=== PATIENT | female | born 1990 | race Caucasian/White ===

== ENCOUNTER 2023-10-11 09:45 | Outpatient (CLI) | payer OTHER ==
--- NOTE | 2023-10-11 11:57 | XRAY Report ---
PROCEDURE: Chest 2V INDICATIONS: COUGH TECHNIQUE: 2 views of the chest were acquired. COMPARISON: None. FINDINGS: Surgical changes and devices: None. Lungs and pleura: No pleural effusions or pneumothorax. Lungs are clear. Mediastinum: Mediastinal contours appear normal. Heart size is normal. Bones and chest wall: No suspicious bony lesions. Overlying soft tissues appear unremarkable. IMPRESSION: No acute cardiopulmonary process. Reviewed by: Erci Mauro MD on 10/11/2023 11:55 AM [facility] Approved by: Eric Mauro MD on 10/11/2023 11:55 AM [facility] Station ID: [id number]
== END 2023-10-11 10:00 | disposition home or self-care (01) ==
LOC: DI.N 09:45
PROVIDERS: ATTEND Family Medicine
DX: R05.9 Cough, unspecified (principal)

== ENCOUNTER 2024-03-20 18:13 | Outpatient (CLI) | payer OTHER ==
--- NOTE | 2024-03-21 12:34 | Ultrasound Report ---
PROCEDURE: Pelvic w/Transvaginal INDICATIONS: RUQ PAIN TECHNIQUE: Real-time scanning was performed of the pelvic organs, with image documentation. Additional endovagi nal scanning was necessary due to incomplete visualization of the adnexal and endometrial structures by transabdominal scanning. COMPARISON: None. FINDINGS: Uterus: Uterus is anteverted and normal in size at 7 x 4.2 x 3.6 cm. The myometrium is homogeneous. The endometrium measures 11 mm in combined thickness. No fibroids seen. Ovaries: The right ovary measures 4.1 x 3.8 x 3 cm, with a calculated ovarian volume of 24 cc. The left ovary measures 3.8 x 3 x 2.8 cm, with a calculated ovarian volume of 16 cc. The ovaries have a normal sonographic appearance. Less than 12 follicles can be seen in each ovary. No adnexal masses are seen. No cystic lesions measuring greater than 3 cm. Small ovarian follicles. Other: No pathologic free abdominal or pelvic fluid. IMPRESSION: 1. No significant ovarian cysts. A few small simple dominant follicles. No free fluid. 2. Endometrium measures 11 mm. Reviewed by: Jim Frazier MD on 03/21/2024 12:32 PM PDT Approved by: Jim Frazier MD on 03/21/2024 12:32 PM PDT Station ID: [id number]
== END 2024-03-20 18:14 | disposition home or self-care (01) ==
LOC: DI 18:13
PROVIDERS: ATTEND Obstetrics & Gynecology
DX: N92.0 Excessive and frequent menstruation with regular cycle (principal); R10.2 Pelvic and perineal pain

== ENCOUNTER 2024-04-20 06:30 | Day surgery (SDC) | payer OTHER ==
[~2024-04-20 06:30] MED LIST: ATROPINE ABBOJECT 1 MG/10 ML SYRINGE IVP PRN; DEXAMETHASONE 4 MG/ML VIAL ONE; LACTATED RINGERS 1,000 ML IV SCH; MIDAZOLAM 2 MG/2 ML VIAL ONE; MORPHINE 2 MG/ML CARPUJECT IVP PRN; NALOXONE 0.4 MG/ML VIAL IVP PRN; ONDANSETRON 4 MG/2 ML VIAL ONE; PROPOFOL 200 MG/20 ML VIAL IVP ONE; ROCURONIUM 50 MG/5 ML VIAL ONE; ePHEDrine 50 MG/ML VIAL IVP PRN; fentaNYL 100 MCG/2 ML VIAL ONE
[2024-04-20] MEDS: LACTATED RINGERS 1,000 ML IV ONE ×3 (06:35→09:13)
[2024-04-20] MEDS: GABAPENTIN 400 MG CAPSULE ONE (06:40)
[2024-04-20] MEDS: ACETAMINOPHEN 325 MG TABLET PO ONE (06:40)
[2024-04-20] MEDS ORDERED: BUPIVACAINE 0.25% PF 30 ML VIAL ONE (06:53)
[2024-04-20] MEDS ORDERED: LEVONORGESTREL 20 MCG/24H IUD IY ONE (07:05)
[2024-04-20 07:29] LABS: BASOPHILS # (AUTO) 0.1 10^3/uL (0.0-0.1); BASOPHILS % (AUTO) 1.3 %; EOSINOPHILS # (AUTO) 0.1 10^3/uL (0.0-0.7); EOSINOPHILS % (AUTO) 1.9 %; HCT - HEMATOCRIT 37.7 % (37.0-47.0); HGB - HEMOGLOBIN 12.5 g/dL (12.0-16.0); LYMPHOCYTES % (AUTO) 42.4 %; MEAN CORPUSCULAR HEMOGLOBIN 28.3 pg (27.0-31.0); MEAN CORPUSCULAR HGB CONC 33.2 g/dL (32.0-36.0); MEAN CORPUSCULAR VOLUME 85.5 fL (81.0-99.0); MEAN PLATELET VOLUME 10.3 fL (7.9-10.8); MONOCYTES # (AUTO) 0.3 10^3/uL (0.0-1.0); MONOCYTES % (AUTO) 7.3 %; NEUTROPHILS # (AUTO) 2.2 10^3/uL (1.5-6.6); NEUTROPHILS % (AUTO) 46.9 %; PLT - PLATELET COUNT 320 10^3/uL (130-450); RED BLOOD COUNT 4.41 10^6/uL (4.20-5.40); RED CELL DISTRIBUTION WIDTH 13.7 % (12.0-15.0); WHITE BLOOD COUNT 4.7 x10^3/uL (4.8-10.8)
[2024-04-20 07:31] LABS: HCG UR QUAL NEGATIVE
--- NOTE | 2024-04-20 07:37 | ANESTHESIA ---
Pre-Anesthesia VS, & Labs - Diagnosis Chronic pelvic pain - Procedure laparoscopy with fulguration of lesions Vital Signs: Temp Pulse Resp BP Pulse Ox O2 Flow Rate 36.9 C 68 16 122/79 98 04/20/24 06:52 04/20/24 06:52 04/20/24 06:52 04/20/24 06:52 04/20/24 06:52 Height: 5 ft 7 in Weight (kg): 97 kg Body Mass Index: 33.5 BMI Classification: Obese - Is Patient ?: No - Lab Results Current Lab Results: Laboratory Tests 04/20/24 07:10: WBC 4.7 L, RBC 4.41, Hgb 12.5, Hct 37.7, MCV 85.5, MCH 28.3, M CHC 33.2, RDW 13.7, Plt Count 320, MPV 10.3, Neut # (Auto) 2.2, Lymph # (Auto) 2.0, [place] # (Auto) 0.3, Eos # (Auto) 0.1, Baso # (Auto) 0.1, Absolute Nucleated RBC 0.00, Nucleated RBC % 0.0 Fish Bones: 04/20/24 07:10 Home Medications and Allergies Home Medications: Ambulatory Orders Cholecalciferol (Vitamin D3) [Vitamin D3] 5,000 unit PO DAILY 04/13/24 Cyclobenzaprine [Flexeril] 5 mg PO TID PRN 04/13/24 Escitalopram Oxalate [Lexapro] 20 mg PO DAILY 04/13/24 Gabapentin [Neurontin] 300 mg PO BID 04/13/24 SUMAtriptan succinate 50 mg PO ONCE PRN 04/13/24 Zolpidem Tartrate [Ambien] 10 mg PO QPM 04/13/24 hydrOXYzine HCL [Hydroxyzine HCl] 25 mg PO PRN PRN 04/13/24 Active Medications Atropine Sulfate (Atropine Abboject 1 Mg/10 Ml Syringe) 0.5 mg IVP Q5M PRN PRN Reason: Bradycardia Stop: 04/21/24 05:54 Ephedrine Sulfate (Ephedrine 50 Mg/Ml Vial) 10 mg IVP Q5M PRN PRN Reason: HYPOTENSION Stop: 04/21/24 05:54 Fentanyl (Fentanyl 100 Mcg/2 Ml Vial) 25 - 50 mcg IVP Q5M PRN PRN Reason: BREAKTHROUGH PAIN (2nd Choice) Stop: 04/21/24 05:54 Hydromorphone HCl (Hydromorphone 0.5 Mg/0.5 Ml Syringe) 0.2 - 0.6 mg IVP Q5M PRN PRN Reason: PAIN (First Choice) Stop: 04/21/24 05:54 Lactated Ringer's (Lr) 1,000 mls @ 100 mls/hr IV .Q10H NATALIIA Stop: 04/20/24 15:59 Morphine Sulfate (Morphine 2 Mg/Ml Carpuject) 2 - 4 mg IVP Q5M PRN PRN Reason: PAIN (3rd Choice) Stop: 04/21/24 05:54 Naloxone HCl (Naloxone 0.4 Mg/Ml Vial) 0.1 mg IVP Q2M PRN PRN Reason: RESP RATE <8 Stop: 04/21/24 05:54 Cholecalciferol (Vitamin D3) [Vitamin D3] 5,000 unit PO DAILY 04/13/24 Cyclobenzaprine [Flexeril] 5 mg PO TID PRN 04/13/24 Escitalopram Oxalate [Lexapro] 20 mg PO DAILY 04/13/24 Gabapentin [Neurontin] 300 mg PO BID 04/13/24 SUMAtriptan succinate 50 mg PO ONCE PRN 04/13/24 Zolpidem Tartrate [Ambien] 10 mg PO QPM 04/13/24 hydrOXYzine HCL [Hydroxyzine HCl] 25 mg PO PRN PRN 04/13/24 Allergies/Adverse Reactions: Allergies Allergy/AdvReac Type Severity Reaction Status Date / Time No Known Drug Allergies Allergy Verified 04/20/24 07:32 Anes History & Medical History - Medical History Cardiovascular: reports: None Pulmonary: reports: None Gastrointestinal: reports: None Urinary: reports: None Musculoskeletal: reports: Other Endocrine/Autoimmune: reports: None Skin: reports: None - Surgical History General: reports: Cholecystectomy, Gastric surgery Urologic: reports: Bladder surgery Exam General: Alert, Oriented x3, Cooperative Dental: WNL Mouth Openin Fingerbreadth Mallampati classification: II Thyromental Distance: 4-6 cm Plan Anesthesia Type: General Consent for Procedure(s) Verified and Reviewed: Yes Code Status: Attempt Resuscitation ASA classification: 2-Mild systemic disease Is this case an emergency?: No
[2024-04-20] MEDS ORDERED: SUGAMMADEX 200 MG/2 ML VIAL IVP ONE (08:13)
[2024-04-20] MEDS ORDERED: ROCURONIUM 50 MG/5 ML VIAL ONE (08:33)
[2024-04-20] MEDS ORDERED: KETOROLAC 30 MG/ML VIAL ONE (08:34)
[2024-04-20] MEDS: BUPIVACAINE 0.25% PF 30 ML VIAL SUBQ ONE (08:35)
[2024-04-20] MEDS: LEVONORGESTREL 20 MCG/24H IUD IY ONE (08:41)
[2024-04-20] MEDS: LACTATED RINGERS 200 ML IV ONE (08:50)
[2024-04-20] MEDS: HYDROmorphone 0.5 MG/0.5 ML SYRINGE IVP PRN (08:58)
[2024-04-20] MEDS: HYDROmorphone 1 MG/ML CARPUJECT ONE (09:04)
[2024-04-20] MEDS ORDERED: fentaNYL 100 MCG/2 ML VIAL ONE (09:07)
[2024-04-20] MEDS ORDERED: HYDROmorphone 1 MG/ML CARPUJECT ONE (09:07)
[2024-04-20] MEDS: fentaNYL 100 MCG/2 ML VIAL IVP PRN (09:15)
--- NOTE | 2024-04-20 09:43 | OPERATIVE REPORT ---
Operative Report - General Planned Procedure: laparoscopy to evaluate pain. placement of Mirena IUD Pre-Op Diagnosis: pelvic pain Procedure Performed: diagnostic laparoscopy, removal of foreign body from posterior cul-de-sac. Placement of Mirena IUD. Post Op Diagnosis: surgical staple in posterior cul-de-sac. no other sources of pain noted. - Procedure Note Primary Surgeon: Radha Starks MD Secondary Surgeon: Liliana Mauro MD Anesthesia Provider: Fidencio Hernandez CRNA with student PAUL Cervantes. Anesthesia Technique: General ET tube Pathology: none IV Fluids (mL): 1,000 Estimated Blood Loss (mL): 10 Urine Output (mL): 50 Indications: Patient with significant pelvic pain impacting her life. worse with menses. Pain with sex. Here for laparoscopic evaluation. Findings: All anatomy appears normal. no adhesions. no endometriosis lesions. Surgical staple sitting in left posterior cul de sac. There does not appear to be any inflammatory response around it. This is removed. There is some unusual texture to the anterior peritoneum in the left upper abdomen below the liver. I showed this image to a Gen Surg after and he did not feel it was anything dangerous. Maybe there were adhesions there that pulled apart with insufflation, although the omentum beneath it appeared normal. Complications: none - Other Other Information/Narrative: Patient is brought to the OR where general ET intubation is done. She is prepped and draped in normal fashion. Arms tucked. SCDs and warmer on. Legs in Abdiel Stirrups. No antibiotics indicated. Time out done. Speculum placed and cervix grasped with tenaculum and uterine manipulator is placed. Speculum removed. catheter is placed. Gloves changed. Inferior umbilicus injected with marcaine and incision made. Trocar placed under direct visualization. Abdomen insufflated with CO2 gas. Second trocar placed in right lower quadrant. Abdomen surveyed. The only thing that we saw was a surgical staple in the left posterior cul de sac. This was removed with a [place] grasper. Lots of pictures were taken. Gas was allowed to escape. Trocars removed. Incisions closed with 4-0 Monocryl and steri-strips and then bandaids. Catheter was removed. Speculum was placed. Uterine manipulator removed. Mirena IUD placed. uterus sounded 7.5 cm. Strings cut. Tenaculum removed. Speculum removed. Patient awakened and brought to PACU in stable condition.
[2024-04-20] MEDS: oxyCODONE 5 MG TABLET PO PRN (10:15)
[2024-04-20 10:37] VITALS: BP 131/79; O2SAT 97
--- NOTE | 2024-04-20 11:23 | ANESTHESIA POST OP EVALUATION ---
Anesthesia Post Eval - Post Anesthesia Eval Vitals: Last Vital Signs Temp 36.7 C 04/20/24 10:23 Pulse 75 04/20/24 10:23 Resp 16 04/20/24 10:23 BP 131/79 H 04/20/24 10:23 Pulse Ox 97 04/20/24 10:23 O2 Flow Rate CV Function Including HR & BP: Stable Pain Control: Satisfactory Nausea & Vomiting: Negative Mental Status: Baseline Respiratory Status: Airway Patent Hydration Status: Satisfactory Anesthesia Complications: None
== END 2024-04-20 06:31 | disposition home or self-care (01) ==
LOC: SDS 06:30
PROVIDERS: ATTEND Obstetrics & Gynecology
PROC: 0WCG4ZZ Extirpation of Matter from Peritoneal Cavity, Percutaneous Endoscopic Approach (ICD-10-PCS; principal; 2024-04-20 07:30)
PROC: 0UH97HZ Insertion of Contraceptive Device into Uterus, Via Natural or Artificial Opening (ICD-10-PCS; 2024-04-20 07:30)
DX: R10.2 Pelvic and perineal pain (principal); Z18.10 Retained metal fragments, unspecified; E66.9 Obesity, unspecified; Z68.33 Body mass index [BMI] 33.0-33.9, adult
CPT/HCPCS: 49329; 58300; 81025; 85025; A9270; J1170; J7120; J7298